=== PATIENT | female | born 1990 ===

== ENCOUNTER → 2025-05-19 | Outpatient (CLI) | payer OTHER ==
[2025-05-23 01:49] LABS: CORTISOL,U FREE - RATIO TO CRT 27.84 ug/g CRT; CORTISOL,URINE FREE - PER 24H 49.0 ug/d (<=45.0); CORTISOL,URN FREE - PER VOLUME 24.50 ug/L; CREATININE,URINE - PER 24H 1760 mg/d (700-1600); CREATININE,URINE - PER VOLUME 88 mg/dL; HOURS COLLECTED 24 hr
== END ==
LOC: LAB SHORT 10:23 → LAB 10:23
PROVIDERS: Family Medicine
DX: R23.2 Flushing (principal)
CPT/HCPCS: 81050; 82530